=== PATIENT | female | born 1945 | race Caucasian/White ===

== ENCOUNTER → 2021-02-21 | Outpatient (CLI) | payer MEDICARE | LOC: MAMMO 12:38 | DX: Z12.31 Encounter for screening mammogram for malignant neoplasm of breast (principal) ==

== ENCOUNTER → 2021-05-30 | Outpatient (CLI) | payer MEDICARE | LOC: RAD 14:23 → MAMMO 14:23 | DX: Z13.820 Encounter for screening for osteoporosis (principal); M85.80 Other specified disorders of bone density and structure, unspecified site; Z78.0 Asymptomatic menopausal state ==

== ENCOUNTER → 2022-06-05 | Outpatient (CLI) | payer MEDICARE | LOC: MAMMO 14:19 | DX: Z12.31 Encounter for screening mammogram for malignant neoplasm of breast (principal); R92.0 Mammographic microcalcification found on diagnostic imaging of breast ==

== ENCOUNTER → 2022-06-10 | Outpatient (CLI) | payer MEDICARE | LOC: MAMMO 07:00 | DX: R92.0 Mammographic microcalcification found on diagnostic imaging of breast (principal) ==